=== PATIENT | male | born 1955 | race Caucasian/White ===

== ENCOUNTER 2022-07-24 14:50 | Emergency (ER) | payer MEDICARE, OTHER ==
[2022-07-24 15:56] LABS: CARBON DIOXIDE,CO2 27.9 mmol/L (21.0-32.0); POTASSIUM,K 4.3 mmol/L (3.5-5.1)
== END 2022-07-24 17:03 | disposition home or self-care (01) ==
LOC: MW.ED 14:50
DX: K21.9 Gastro-esophageal reflux disease without esophagitis (principal); K22.4 Dyskinesia of esophagus; Z20.822 Contact with and (suspected) exposure to COVID-19
CPT/HCPCS: 36415; 71045; 80053; 84484; 85025; 93005; 99285; U0002

== ENCOUNTER 2023-07-30 12:09 | Emergency (ER) | payer MEDICARE, OTHER | END 2023-07-30 13:54 | disposition home or self-care (01) | LOC: MW.ED 12:09 | DX: B37.2 Candidiasis of skin and nail (principal); K14.6 Glossodynia; E78.5 Hyperlipidemia, unspecified; E78.00 Pure hypercholesterolemia, unspecified; K21.9 Gastro-esophageal reflux disease without esophagitis; E11.9 Type 2 diabetes mellitus without complications; I10 Essential (primary) hypertension; J44.9 Chronic obstructive pulmonary disease, unspecified; Z86.16 Personal history of COVID-19; Z79.82 Long term (current) use of aspirin; Z79.899 Other long term (current) drug therapy | CPT/HCPCS: 99283; 99284 ==

== ENCOUNTER 2024-08-22 07:52 | Emergency (ER) | payer OTHER, MEDICARE ==
[2024-08-22] MEDS: Lidocaine 1% 10 ML MDV INFILT ONE ×2 (08:35)
[2024-08-22] MEDS: Sodium Chloride 0.9% 2.5 ML Syringe FLUSH PRN (08:35)
[2024-08-22] MEDS: Sodium Chloride 0.9% 10 ML Syringe FLUSH PRN (08:36)
[2024-08-22] MEDS: Diphtheria,Pertussis(Acell),Tetanus Vaccine 0.5 ML Syringe IM ONE (08:36)
[2024-08-22] MEDS: Bacitracin Oint 1 GM U/D Packet TOP ONE (08:37)
[2024-08-22] MEDS: ceFAZolin 1 GM in Sodium Chloride 0.9% 50 ML IV ONE (08:45)
== END 2024-08-22 10:25 | disposition home or self-care (01) ==
LOC: MW.ED 07:52
DX: S68.124A Partial traumatic metacarpophalangeal amputation of right ring finger, initial encounter (principal); I10 Essential (primary) hypertension; E78.00 Pure hypercholesterolemia, unspecified; J44.9 Chronic obstructive pulmonary disease, unspecified; K21.9 Gastro-esophageal reflux disease without esophagitis; E11.9 Type 2 diabetes mellitus without complications; Z23 Encounter for immunization; Z79.82 Long term (current) use of aspirin; Z79.899 Other long term (current) drug therapy; W23.0XXA Caught, crushed, jammed, or pinched between moving objects, initial encounter
CPT/HCPCS: 12002; 73130; 90471; 90715; 96365; 99283; J0690; J3490

== ENCOUNTER 2025-01-14 13:57 | Emergency (ER) | payer OTHER, MEDICARE ==
[2025-01-14] MEDS: Bupivacaine 0.5% 10 ML SDV INJECT ONE (17:03)
== END 2025-01-14 18:17 | disposition home or self-care (01) ==
LOC: MW.ED 13:57
DX: S61.316A Laceration without foreign body of right little finger with damage to nail, initial encounter (principal); I10 Essential (primary) hypertension; J44.9 Chronic obstructive pulmonary disease, unspecified; K21.9 Gastro-esophageal reflux disease without esophagitis; E78.00 Pure hypercholesterolemia, unspecified; E11.9 Type 2 diabetes mellitus without complications; F17.210 Nicotine dependence, cigarettes, uncomplicated; Z79.82 Long term (current) use of aspirin; Z79.899 Other long term (current) drug therapy; Z90.49 Acquired absence of other specified parts of digestive tract; W23.0XXA Caught, crushed, jammed, or pinched between moving objects, initial encounter
CPT/HCPCS: 11760; 73120; 99283; J0665; 12001

== ENCOUNTER 2025-02-01 08:43 | Emergency (ER) | payer OTHER, MEDICARE | END 2025-02-01 09:24 | disposition left against medical advice (07) | LOC: MW.ED 08:43 | DX: S61.216D Laceration without foreign body of right little finger without damage to nail, subsequent encounter (principal); X58.XXXD Exposure to other specified factors, subsequent encounter | CPT/HCPCS: 99281 ==